=== PATIENT | female | born 1990 | race Caucasian/White ===

== ENCOUNTER → 2021-10-26 | Outpatient (CLI) | payer OTHER | LOC: KOH-I 09:27 | DX: I82.402 Acute embolism and thrombosis of unspecified deep veins of left lower extremity (principal); M79.662 Pain in left lower leg; S82.62XA Displaced fracture of lateral malleolus of left fibula, initial encounter for closed fracture | CPT/HCPCS: 73610; 73630; 93971 ==

== ENCOUNTER → 2021-11-09 | Outpatient (CLI) | payer OTHER | LOC: KOH-I 09:12 | DX: S82.492A Other fracture of shaft of left fibula, initial encounter for closed fracture (principal); S82.62XA Displaced fracture of lateral malleolus of left fibula, initial encounter for closed fracture | CPT/HCPCS: 73610 ==

== ENCOUNTER → 2021-12-14 | Outpatient (CLI) | payer OTHER | LOC: KOH-I 11:02 | DX: M25.572 Pain in left ankle and joints of left foot (principal); S82.832A Other fracture of upper and lower end of left fibula, initial encounter for closed fracture; X58.XXXA Exposure to other specified factors, initial encounter | CPT/HCPCS: 73610 ==